=== PATIENT | male | born 1955 | race Caucasian/White ===

== ENCOUNTER → 2019-11-04 10:50 | Outpatient (BNVA) | payer MEDICARE, SELFPAY | PROVIDERS: Family Provider Family Medicine; Visit Provider Registered Nurse | DX: Z00.00 Encounter for general adult medical examination without abnormal findings (principal); E78.5 Hyperlipidemia, unspecified; Z12.5 Encounter for screening for malignant neoplasm of prostate; Z71.3 Dietary counseling and surveillance; Z87.891 Personal history of nicotine dependence | CPT/HCPCS: 80053; 80061; 81000; 85025; G0103 ==

== ENCOUNTER 2021-08-26 07:52 | Outpatient (CLI) | payer MEDICARE, SELFPAY ==
--- NOTE | 2021-08-26 07:59 | CT_ITS ---
WS: [id number] LDCT LUNG CANCER SCREENING TECHNIQUE: Noncontrast CT of the chest with coronal and sagittal reformatted images. CLINICAL INFORMATION: HX OF TOBACCO USE COMPARISON: None. DLP: 83.49 mGy.cm DIvol: Mean CTDIvol: 1.60 (mGy) All CT scans at [facility] use at least one of these dose optimization techniques: automat ed exposure control; mA and/or kV adjustment per patient size (includes targeted exams where dose is matched to clinical indication); or iterative reconstruction. FINDINGS:Bronchiectasis RIGHT middle lobe. Subsegmental atelectasis in the RIGHT middle lobe. No susp icious pulmonary parenchymal abnormalities. Normal caliber thoracic aorta. Aortic calcification. No mediastinal or hilar lymphadenopathy. Coronar y calcification. Adrenal glands are normal. Normal GE junction. Hypertrophic changes mid and lower thoracic spine. No axillary lymphadenopathy. CT/CT lung screening [id number] IMPRESSION: LUNG-RADS: 2-Benign Appearance or Behavior FOLLOW UP: 12 Month: Continue annual screening with LDCT
== END 2021-08-26 07:53 | disposition home or self-care (01) ==
PROVIDERS: Visit Provider Family Medicine
DX: Z12.2 Encounter for screening for malignant neoplasm of respiratory organs (principal); Z87.891 Personal history of nicotine dependence
CPT/HCPCS: 71271

== ENCOUNTER 2023-01-30 09:05 | Outpatient (CLI) | payer MEDICARE, SELFPAY ==
--- NOTE | 2023-01-30 09:14 | CT_ITS ---
WS: [id number] LDCT LUNG CANCER SCREENING HISTORY: HX OF TOBACCO USE TECHNIQUE: Axial imaging performed from the apices to 1 cm below the costophrenic angles. Coronal and sagittal reformats are submitted with axial MIP series. All CT scans at [facility] use at least one of these dose optimization techniques: automated exposure control; mA and/or kV adjustment per patient size (includes targeted exams where dose is matched to clinical indication); or iterativ e reconstruction. DLP: 89.86 mGy.cm DIvol: Mean CTDIvol: 1.70 (mGy) COMPARISON: 08/26/2021 Diagnostic quality: Satisfactory Lungs: No pulmonary mass or nodule. Mild changes of bronchiectasis in the medial RIGHT middle lobe. N o endobronchial lesions. There is a small amount of mucus debris within the trachea. Heart: Normal size heart with no pericardial effusion.. Scattered calcifications in the coronary nino adi. Other findings: None. IMPRESSION: CT/CT lung screening [id number] LUNG-RADS: 2-Benign Appearance or Behavior FOLLOW UP: 12 Month: Continue annual screening with LDCT OTHER FINDINGS (S MODIFIER): None.
== END 2023-01-30 09:06 | disposition home or self-care (01) ==
LOC: RAD 09:05
PROVIDERS: Visit Provider Family Medicine
DX: Z12.2 Encounter for screening for malignant neoplasm of respiratory organs (principal); Z87.891 Personal history of nicotine dependence
CPT/HCPCS: 71271

== ENCOUNTER 2024-02-02 09:36 | Outpatient (CLI) | payer MEDICARE, SELFPAY ==
--- NOTE | 2024-02-02 09:39 | CT_ITS ---
WS: [id number] LDCT LUNG CANCER SCREENING HISTORY: HX OF TOBACCO USE TECHNIQUE: Axial imaging performed from the apices to 1 cm below the costophrenic angles. Coronal and sagittal reformats are submitted with axial MIP series. All CT scans at [facility] use at least one of these dose optimization techniques: automated exposure control; mA and/or kV adjustment per patient size (includes targeted exams where dose is matched to clinical indication); or iterativ e reconstruction. DLP: 82.39 mGy.cm DIvol: Mean CTDIvol: 1.60 (mGy) COMPARISON: 01/30/2023 Diagnostic quality: Satisfactory Lungs: No pulmonary nodule or mass. Mild atelectasis at the LEFT lung base. Reidentified is mild bron chiectasis in the RIGHT middle lobe. No endobronchial lesions. Heart: Normal size heart with no pericardial effusion.. Other findings: No mediastinal or hilar adenopathy. Mild atherosclerosis aorta. No adrenal mass. Mild irregularity in the sternal body is probably from an old healed fracture. CT/CT lung screening [id number] IMPRESSION: LUNG-RADS: 1-Negative FOLLOW UP: 12 Month: Continue annual screening with LDCT OTHER FINDINGS (S MODIFIER): None.
== END 2024-02-02 09:37 | disposition home or self-care (01) ==
LOC: RAD 09:36
PROVIDERS: Visit Provider Family Medicine
DX: Z12.2 Encounter for screening for malignant neoplasm of respiratory organs (principal); Z87.891 Personal history of nicotine dependence
CPT/HCPCS: 71271

== ENCOUNTER 2024-12-12 11:30 | Outpatient (CLI) | payer MEDICARE, SELFPAY ==
--- NOTE | 2024-12-12 | ECG_ITS ---
[facility] Test Date: 2024-12-12 Pat Name: Raffaele Roldan Department: Room: Gender: Male Virtual Office Assistant: : 1955 Requested By: Db Bear Order Number: [id number] Lashaun MD: KELLEE RUBIN Interpretive Statements Lung unchanged pre/post procedure; Intraprocedure shortess of breath; Symptoms resoled by discharge EXERCISE DATA: The patient was exercised by En protocol. Baseline heart rate was 73 beats per minute. Baseline blood pressure was 140/81 millimeters of mercury. Target heart rate was 150 beats per minute. Maximum heart rate achieved was 141, which was 94% of the target heart rate. Maximum blood pressure was 194/113 millimeters of mercury. Total exercise time was [8 minutes 1 second. Maximum METs achieved was 10.2 maximum VO2 was 35.7 the reason for ending the test was maximum effort achieved, the patient complained of shortness of breath during the stress test, which then resolved at the end of the test. ELECTROCARDIOGRAM: BASELINE: Showed sinus rhythm, normal axis, no significant ST-T changes at the baseline noted. EXERCISE: At the peak exercise level, No significant ST-T changes suggestive of ischemia noted. RECOVERY: During the recovery period, heart rate dropped appropriately. No significant ST-T changes in the recovery suggestive of ischemia noted. CONCLUSION: 1. Exercise capacity good 2. Heart rate response was appropriate 3. Blood pressure response was hypertensive 4. Symptoms not suggestive of ischemia. 5. Electrocardiogram portion of the stress test was not suggestive of ischemia. 6. Nuclear scan will be documented separately. Electronically Signed On 01-01-2025 21:00:14 CDT by KELLEE RUBIN [email or web address]
[2024-12-12 11:58] VITALS: BMI 30.1
[2024-12-12 12:38] VITALS: BP 142/81; PULSE 94
== END 2024-12-12 11:31 | disposition home or self-care (01) ==
LOC: CDL 11:33
PROVIDERS: PCP Family Medicine; Visit Provider Family Medicine
DX: I20.9 Angina pectoris, unspecified (principal); R03.0 Elevated blood-pressure reading, without diagnosis of hypertension
CPT/HCPCS: 93017

== ENCOUNTER 2025-02-03 10:47 | Outpatient (CLI) | payer MEDICARE, SELFPAY ==
--- NOTE | 2025-02-03 10:50 | CT_ITS ---
WS: [id number] LDCT LUNG CANCER SCREENING HISTORY: HX OF TOBACCO USE TECHNIQUE: Axial imaging performed from the apices to 1 cm below the costophrenic angles. Coronal and sagittal reformats are submitted with axial MIP series. All CT scans at [facility] use at least one of these dose optimization techniques: automated exposure control; mA and/or kV adjustment per patient size (includes targeted exams where dose is matched to clinical indication); or iterative reconstruction. DLP: 91.17 mGy.cm DIvol: Mean CTDIvol: 1.70 (mGy) COMPARISON: 02/02/2024 Diagnostic quality: Satisfactory Lungs: Pulmonary hyperinflation from emphysema. Thin bandlike areas of atelectasis or scarring noted bilaterally. No suspicious nodule, mass or pneumonia. No endobronchial lesions. Heart: Normal size heart with no pericardial effusion.. Other findings: No mediastinal or hilar adenopathy. Mild atherosclerosis aorta. Normal adrenal glands. Mild hepatic steatosis. Deformity in the superior sternal bodies from an old healed fracture. Degenerative changes in the thoracic spine. Large bridging clawlike osteophytes. CT/CT lung screening [id number] IMPRESSION: LUNG-RADS: 1-Negative FOLLOW UP: 12 Month: Continue annual screening with LDCT OTHER FINDINGS (S MODIFIER): None.
== END 2025-02-03 10:48 | disposition home or self-care (01) ==
LOC: RAD 10:48
PROVIDERS: PCP Family Medicine; Visit Provider Family Medicine
DX: Z12.2 Encounter for screening for malignant neoplasm of respiratory organs (principal); Z87.891 Personal history of nicotine dependence; I70.0 Atherosclerosis of aorta; K76.0 Fatty (change of) liver, not elsewhere classified; M95.4 Acquired deformity of chest and rib; Z87.81 Personal history of (healed) traumatic fracture; M51.34 Other intervertebral disc degeneration, thoracic region; M25.78 Osteophyte, vertebrae; J43.9 Emphysema, unspecified
CPT/HCPCS: 71271